=== PATIENT | female | born 1955 | race Caucasian/White ===

== ENCOUNTER 2016-12-14 22:52 | Emergency (ER) | payer OTHER ==
[~2016-12-14] VITALS: Ht 165.1 cm; Wt 79.8 kg
[2016-12-14 23:00] VITALS: BP 129/72; PULSE 68; RESP 18; TEMP 98.2; O2SAT 100
--- NOTE | 2016-12-14 23:05 | NUR ---
Placed in room 03 . Placed on cardiac technologist, blood pressure machine and pulse oximeter. To gown for exam. Side rails up. Report given to AGUEDA Mena.
--- NOTE | 2016-12-14 23:10 | NUR ---
PT IS AOX4, C/O ABDOMINAL PAIN X 3 DAYS. PAIN SCALE 8/10 AND DENIES N/V.
--- NOTE | 2016-12-14 23:11 | NUR ---
ER Dr.DE OSORIO at bedside examining patient.
[2016-12-14 23:25] LABS: BILIRUBIN,URINE NEGATIVE (NEGATIVE); CLARITY/URINE CLEAR (CLEAR); COLOR,URINE YELLOW (YELLOW); GLUCOSE,URINE NEGATIVE (NEGATIVE); KETONES,URINE NEGATIVE (NEGATIVE); LEUKOCYTE ESTERASE ,URINE NEGATIVE (NEGATIVE); NITRITE, URINE NEGATIVE (NEGATIVE); PROTEIN URINE NEGATIVE (NEGATIVE); UROBILINOGEN,URINE 0.2 (0.2-1.0)
[2016-12-14] MEDS ORDERED: NACL 0.9% 1,000 ML IV ONE (23:26)
[2016-12-14 23:27] LABS: BLOOD, URINE TRACE (NEGATIVE)
[2016-12-14] MEDS ORDERED: LORazepam 2 MG/ML VIAL (FOR ER USE) IVP ONE (23:30)
[2016-12-14] MEDS ORDERED: KETOROLAC TROMETHAMINE 30 MG VIAL IVP ONE (23:30)
[2016-12-14 23:40] LABS: BACTERIA,URINE FEW /HPF (None Seen); RBC,URINE 0-3 /HPF (0-3); WBC,URINE 0-3 /HPF (0-3)
[2016-12-14 23:41] LABS: MUCUS,URINE None Seen /LPF (None Seen)
[2016-12-14 23:57] LABS: BASOPHILS % (AUTO) 0.6 % (0.0-2.0); EOSINOPHILS # (AUTO) 0.3 K/uL (0.0-0.4); EOSINOPHILS % (AUTO) 4.7 % (0.0-4.0); HEMATOCRIT 37.8 % (36-48); HEMOGLOBIN 13.2 g/dL (12.0-16.0); LYMPHOCYTES # (AUTO) 2.1 K/uL (1.0-5.5); LYMPHOCYTES % (AUTO) 29.7 % (20.5-51.5); MEAN CORPUSCULAR HEMOGLOBIN 30 pg (27-31); MEAN CORPUSCULAR HGB CONC 35 % (32-36); MEAN CORPUSCULAR VOLUME 87 fL (79.0-98.0); MONOCYTES # (AUTO) 0.6 K/uL (0.0-1.0); MONOCYTES % (AUTO) 8.6 % (1.7-9.3); NEUTROPHILS # (AUTO) 4.1 K/uL (1.8-7.7); NEUTROPHILS % (AUTO) 56.4 % (40.0-70.0); PLATELET COUNT (AUTO) 219 K/uL (130-430); RED BLOOD CELL COUNT(AUTO) 4.35 MIL/uL (4.2-6.2); RED CELL DISTRIBUTION WIDTH 12.2 % (9.0-15.0); WHITE BLOOD COUNT (AUTO) 7.1 K/uL (4.8-10.8)
[2016-12-14 23:59] LABS: CALCIUM 8.9 mg/dL (8.4-11.0); CREATININE 0.82 mg/dL (0.55-1.30); POTASSIUM 3.7 mmol/L (3.5-5.1)
--- NOTE | 2016-12-15 | NUR ---
# 20 gauge angiocath placed to RIGHT AC. Use of asceptic technique. Opsite placed over site. Blood return noted. Blood for lab drawn from site. Flushed with 10 cc of normal saline. No evidence of infiltration noted. Patient tolerated well.
[2016-12-15 00:01] LABS: PROTHROMBIN TIME 10.6 SECS (9.5-12.5)
[2016-12-15 00:07] LABS: ALBUMIN 3.5 g/dL (3.4-4.8); TOTAL BILIRUBIN 0.2 mg/dL (0.0-1.0); TOTAL PROTEIN, SERUM 7.2 g/dL (6.4-8.3)
[2016-12-15 01:10] VITALS: BP 125/65; PULSE 60; RESP 18; TEMP 98.2; O2SAT 100
--- NOTE | 2016-12-15 01:10 | NUR ---
Patient given written and verbal discharge instructions and verbalizes understanding. ER MD discussed with patient the results and treatment provided. Patient in stable condition. ID arm band removed. IV catheter removed intact and dressing applied, no active bleeding. Rx of IBUPROFEN 800 MG given. Patient educated on pain management and to follow up with PMD. Pain Scale 0/10. Opportunity for questions provided and answered.
== END 2016-12-15 01:10 | disposition home or self-care (01) ==
LOC: SED 22:52
DX: R10.31 Right lower quadrant pain (principal); I10 Essential (primary) hypertension; E78.00 Pure hypercholesterolemia, unspecified; Z88.6 Allergy status to analgesic agent; Z88.5 Allergy status to narcotic agent
CPT/HCPCS: 36415; 74176; 80053; 81000; 85025; 85610; 96361; 96374; 96375; 99285; J1885; J2060; J7030

== ENCOUNTER 2017-02-27 10:15 | Emergency (ER) | payer OTHER ==
[~2017-02-27] VITALS: Ht 165.1 cm; Wt 77.1 kg
[2017-02-27 10:15] VITALS: BP_SYST 15; BP_SYST 151
[2017-02-27] MEDS ORDERED: KETOROLAC TROMETHAMINE 60 MG/2 ML VIAL IM ONE (10:30)
[2017-02-27] MEDS ORDERED: CYCLOBENZAPRINE HCL 10 MG TABLET (FLEXERIL) PO ONE (10:30)
[2017-02-27 12:20] VITALS: BP_SYST 131
== END 2017-02-27 12:20 | disposition home or self-care (01) ==
LOC: SED 10:15
DX: M43.6 Torticollis (principal); I10 Essential (primary) hypertension; E78.00 Pure hypercholesterolemia, unspecified; F41.9 Anxiety disorder, unspecified; Z79.82 Long term (current) use of aspirin; Z88.5 Allergy status to narcotic agent; Z88.6 Allergy status to analgesic agent
CPT/HCPCS: 72125; 96372; 99284; J1885

== ENCOUNTER 2017-03-05 21:15 | Emergency (ER) | payer OTHER ==
[~2017-03-05] VITALS: Ht 165.1 cm; Wt 79.4 kg
[2017-03-05 22:14] VITALS: BP 140/80; PULSE 72; RESP 13; TEMP 97.5; O2SAT 98
--- NOTE | 2017-03-05 22:20 | NUR ---
Triaged. No beds available at this time. Placed in the waiting room.
--- NOTE | 2017-03-06 00:23 | NUR ---
Pt stated she wanted to go to [facility] instead. Patient left without being seen.
== END 2017-03-06 00:23 | disposition left against medical advice (07) ==
LOC: SED 21:15
DX: M54.2 Cervicalgia (principal); R51 Headache; Z53.21 Procedure and treatment not carried out due to patient leaving prior to being seen by health care provider